=== PATIENT | female | born 1990 | race Caucasian/White ===

== ENCOUNTER 2018-04-08 12:36 | Emergency (ER) | payer SELFPAY ==
[~2018-04-08] VITALS: Ht 160 cm; Wt 75.0 kg
[2018-04-08 12:40] VITALS: BP 138/89; PULSE 94; TEMP 97
[2018-04-09] MEDS ORDERED: FLAGYL500 MG PO (14:36)
== END 2018-04-08 14:58 | disposition left against medical advice (07) ==
LOC: COL.ER 12:36
DX: L29.2 Pruritus vulvae (principal); R05 Cough

== ENCOUNTER 2018-04-09 11:41 | Emergency (ER) | payer OTHER ==
[~2018-04-09] VITALS: Ht 160 cm; Wt 75.0 kg
[2018-04-09 12:00] VITALS: BP 124/91; PULSE 76; TEMP 98.1
[2018-04-09 12:10] LABS: COLLECTION METHOD CLEAN CATCH
[2018-04-09 12:22] LABS: MUCOUS Present /lpf; PH 7 (5-8); SQUAMOUS EPITHELIAL 0-2 /hpf; URINE APPEARANCE Clear; URINE BACTERIA None Seen /hpf; URINE BILIRUBIN Negative (NEGATIVE); URINE BLOOD Negative (NEGATIVE); URINE COLOR Yellow; URINE GLUCOSE Negative (NEGATIVE); URINE KETONE Negative (NEGATIVE); URINE LEUKOCYTE ESTERASE Negative (NEGATIVE); URINE NITRATE Negative (NEGATIVE); URINE PROTEIN(semi-quant) Negative (NEGATIVE); URINE RBC 0-2 /hpf; URINE UROBILINOGEN Negative (NEGATIVE)
[2018-04-09] MEDS ORDERED: FLAGYL500 MG PO (14:36)
== END 2018-04-09 15:00 | disposition home or self-care (01) ==
LOC: COL.ER 11:41
PROVIDERS: Emergency Medicine
DX: N76.0 Acute vaginitis (principal); N93.8 Other specified abnormal uterine and vaginal bleeding; R05 Cough; Z98.890 Other specified postprocedural states
CPT/HCPCS: J0696